=== PATIENT | female | born 1995 | race Two or more races ===

== ENCOUNTER → 2017-05-04 | Emergency (ER) | payer MEDICAID ==
[~2017-05-04] VITALS: Ht 152.4 cm; Wt 47.2 kg
[~2017-05-04] MED LIST: Acetaminophen 500mg (ES) tab ORAL ONE; LIDOCAINE700 M1 TP; Methocarbamol 500mg tab ORAL ONE; ROBAXIN500 MG PO; TYLENOL EXTRA500 MG ORAL
[2017-05-04 17:00] VITALS: BP 106/56
--- NOTE | 2017-05-04 17:00 | Emergency Room Report ---
History of Present Illness General Chief Complaint: Lower Back Pain or Injury Source: Patient Present Illness HPI 22 yo female patient presents to ER complaining of low back pain s/p fall 3 days ago. Patient reports ground level fall onto low back, reports fell on tile floor. Denies hitting head, denies LOC. Reports taking of Ibuprofen for pain symptoms. Decided to come get "checked out" today just to "be safe". Denies radiation of pain. Denies fever, chest pain, SOB. Denies bowel or bladder incontinence. Denies hx of surgery. Denies hx of cancer or IVDA. Denies abdominal pain. Allergies: Coded Allergies: No Known Allergies (Unverified , 05/04/17) Patient History Past Medical History: see triage record Last Menstrual Period: 05/01/17 Reviewed Nursing Documentation: PMH: Agreed; PSxH: Agreed Nursing Documentation-PMH Past Medical History: No Stated History Review of Systems All Other Systems: negative except mentioned in HPI Physical Exam Vital Signs Date Time Temp Pulse Resp B/P (MAP) Pulse Ox O2 Delivery O2 Flow Rate FiO2 05/04/17 16:34 98.5 78 18 106/56 97 Room Air 98.4 Sp02 EP Interpretation: reviewed, normal General Appearance: well appearing, no apparent distress, alert, GCS 15, non- toxic Head: normocephalic, atraumatic Eyes: bilateral eye normal inspection, bilateral eye PERRL ENT: hearing grossly normal, normal pharynx, no angioedema, normal voice, uvula midline, moist mucus membranes Neck: full range of motion Respiratory: lungs clear, normal breath sounds, no rhonchi, no respiratory distress, no accessory muscle use, no wheezing, speaking full sentences Cardiovascular #1: regular rate, rhythm, no edema Gastrointestinal: non tender, soft, no mass, non-distended, no guarding, no rebound Genitourinary: no CVA tenderness Musculoskeletal: back normal, digits/nails normal, gait/station normal, normal range of motion, non-tender, no calf tenderness, pelvis stable, other - no bony tenderness, no stepoff, no ecchymosis, no erythema Neurologic: alert, oriented x3, responsive, motor strength/tone normal, sensory intact Psychiatric: mood/affect normal Skin: no rash Lymphatic: no adenopathy Medical Decision Making PA Attestation Dr. Taylor is my supervising Physician whom patient management has been discussed with. Diagnostic Impression: Primary Impression: Low back pain ER Course Pt presents to ED c/o back pain. DDX considered but are not limited to sprain, strain, cauda equine, epidural abscess. Low suspicion for cauda equina, no bowel or bladder incontinence or retention. No fever, nontoxic appearing, no radiation of pain, low suspicion for epidural mass. Low suspicion for fracture. Does not require imaging at this time. VITAL SIGNS are WNL, patient is afebrile. Ordered pain medication ER COURSE: PE benign, no bony stepoff, no bony tenderness. Patient complains of muscle "tightness" and pain with forward bend, normal ROM intact per patient. Full ROM with side bend and twisting. Provided Tylenol, Lidocaine patch, and Robaxin. Patient reports feeling better. Ambulating independently without difficulty. Followup with primary care provider, discuss further imaging and referral to ortho at that time. Patient resting comfortably, in no acute distress, nontoxic appearing, laughing and smiling. DISCHARGE: -Rx provided for Tylenol -Rx provided for Lidocaine patch -Rx provided for Robaxin At this time pt. is stable for d/c to home. At this time patient is resting comfortably, in no acute distress, nontoxic appearing, smiling and talking without difficulty. Will provide printed patient care instructions, and any necessary prescriptions. Patient instructed to follow with primary care provider for further treatment and referral as needed. Care plan and follow up instructions have been discussed with the patient prior to discharge. Patient reports understanding and agreement to treatment plan. Patient questions asked and answered. ER precautions given, patient instructed to return to ER immediately for any new or worsening of symptoms. Last Vital Signs Date Time Temp Pulse Resp B/P (MAP) Pulse Ox O2 Delivery O2 Flow Rate FiO2 05/04/17 16:34 98.5 78 18 106/56 97 Room Air 98.4 Disposition: HOME, SELF-CARE Condition: Stable Scripts Methocarbamol* (ROBAXIN*) 500 Mg Tablet 500 MG PO TID, #21 TAB 0 Refills Prov: Carmelo Payne P.A. 05/04/17 Lidocaine (Lidocaine) 1 Each Adh..patch 700 MG TP DAILY for 5 Days, #5 PATCH Prov: Carmelo Payne P.A. 05/04/17 Acetaminophen* (TYLENOL EXTRA STRENGTH*) 500 Mg Tablet 500 MG ORAL Q8H PRN for Prn Headache/Temp > 101, #30 TAB 0 Refills Prov: Carmelo Payne 05/04/17 Patient Instructions: Back Pain, Adult Additional Instructions: Patient instructed to follow up with primary care provider and discuss further referral to orthopedics. Patient instructed on rest, ice and heat for pain. Take medications as directed. Patient questions asked and answered. ER precautions given, patient instructed to return to ER immediately for any new or worsening of symptoms. Carmelo Payne May 04, 2017 17:00
[2017-05-04 17:15] VITALS: BP 106/56
== END | disposition home or self-care (01) ==
LOC: EMR 17:00
DX: M54.5 Low back pain (principal); W19.XXXA Unspecified fall, initial encounter; Y92.9 Unspecified place or not applicable
CPT/HCPCS: 99284